=== PATIENT | male | born 1995 | race Native Hawaiian/Other Pacific Islander ===

== ENCOUNTER 2017-10-24 14:19 | Emergency (ER) | payer SELFPAY ==
[2017-10-24 14:29] VITALS: BP 151/84
[2017-10-24] MEDS ORDERED: BENADRYL IM ONE (16:47)
--- NOTE | 2017-10-24 16:52 | Emergency Department Report ---
ED General Adult HPI - General Chief complaint: Pain General Stated complaint: ALLERGIC REACTION TO MEDS Time Seen by Provider: 10/24/17 16:44 Source: patient Mode of arrival: Ambulatory Limitations: No Limitations - History of Present Illness Initial comments: Patient is 22 years old male with history of self-inflicted wound and schizophrenia. Patient brought from [facility] for evaluation of difficulty opening his jaw and repetitive movement at this started after he was put on Haldol in the last 7 days. Patient denied any other symptoms. - Related Data Previous Rx's Medication Instructions Recorded Last Taken Type diphenhydrAMINE [Benadryl CAP] 25 mg PO Q8HR PRN #20 capsule 10/24/17 Unknown Rx Allergies Allergy/AdvReac Type Severity Reaction Status Date / Time Sulfa (Sulfonamide Allergy Rash Verified 10/24/17 14:25 Antibiotics) ED Review of Systems ROS: Stated complaint: ALLERGIC REACTION TO MEDS Other details as noted in HPI Comment: All other systems reviewed and negative Constitutional: denies: chills, fever Respiratory: denies: cough Cardiovascular: denies: chest pain, palpitations Gastrointestinal: denies: abdominal pain, nausea, vomiting, diarrhea, constipation Genitourinary: denies: dysuria Musculoskeletal: denies: back pain ED Past Medical Hx - Past Medical History Additional medical history: ADHD, anger issues - Surgical History Additional Surgical History: Jaw surgery - Social History Smoking Status: Current Every Day Smoker Substance Use Type: Alcohol, Marijuana - Medications Home Medications: Home Medications Medication Instructions Recorded Confirmed Last Taken Type diphenhydrAMINE [Benadryl CAP] 25 mg PO Q8HR PRN #20 capsule 10/24/17 Unknown Rx ED Physical Exam - General Limitations: No Limitations General appearance: alert, other (tardive dyskinesia) - Head Head exam: Present: atraumatic, normocephalic - Eye Eye exam: Present: normal appearance - ENT ENT exam: Present: normal exam, normal orophraynx, mucous membranes moist - Neck Neck exam: Present: normal inspection, full ROM. Absent: tenderness, meningismus, lymphadenopathy, thyromegaly - Respiratory Respiratory exam: Present: normal lung sounds bilaterally. Absent: respiratory distress, wheezes, chest wall tenderness - Cardiovascular Cardiovascular Exam: Present: regular rate, normal rhythm, normal heart sounds - GI/Abdominal GI/Abdominal exam: Present: soft, normal bowel sounds. Absent: distended, tenderness, guarding, rebound, rigid, mass, bruit, pulsatile mass - Extremities Exam Extremities exam: Present: normal inspection, full ROM, normal capillary refill - Neurological Exam Neurological exam: Present: alert, oriented X3, CN II-XII intact, normal gait - Skin Skin exam: Present: warm, intact, normal color ED Course Vital Signs 10/24/17 14:25 Temperature 97.9 F Pulse Rate 76 Respiratory 16 Rate Blood Pressure 151/84 O2 Sat by Pulse 98 Oximetry ED Medical Decision Making - Medical Decision Making Patient's symptoms improved significantly after Benadryl. Advised to continue Benadryl as needed and to follow-up with his psychiatric. Critical care attestation.: If time is entered above; I have spent that time in minutes in the direct care of this critically ill patient, excluding procedure time. ED Disposition Clinical Impression: Tardive dyskinesia Disposition: [id number] PSY HOSP/PSY UNIT Is pt being admited?: No Condition: Stable Instructions: Schizophrenia (ED) Prescriptions: diphenhydrAMINE [Benadryl CAP] 25 mg PO Q8HR PRN #20 capsule PRN Reason: Spasms Referrals: PRIMARY CARE, [Primary Care Provider] - 3-5 Days
== END 2017-10-24 17:08 ==
LOC: ED 14:19
DX: G24.01 Drug induced subacute dyskinesia (principal); T43.4X5A Adverse effect of butyrophenone and thiothixene neuroleptics, initial encounter; F90.9 Attention-deficit hyperactivity disorder, unspecified type; F17.200 Nicotine dependence, unspecified, uncomplicated; F12.10 Cannabis abuse, uncomplicated; Z88.2 Allergy status to sulfonamides; Y92.89 Other specified places as the place of occurrence of the external cause
CPT/HCPCS: 96372; 99284; J1200